=== PATIENT | male | born 1940 | race Caucasian/White ===

== ENCOUNTER 2016-02-23 21:47 | Inpatient (IN) | payer MEDICARE, OTHER ==
--- NOTE | 2016-02-23 22:21 | EDPRACDOC ---
- General Information Chief Complaint: Altered Mental Status Stated Complaint: AMS Time Seen by Provider: 02/23/16 22:12 Information Source: Police Home Medications: Home Medications Enalapril Maleate [Vasotec] 20 mg PO BID 10/29/15 [place]-3 Fatty Acids/Fish Oil [Fish Oil 1,000 mg Softgel] 1 cap PO DAILY Omeprazole [Prilosec] 20 mg PO DAILY 12/06/15 L. Acidophilus/Bulgaricus [Floranex Tablet] 1 tab PO DAILY 12/08/15 Carvedilol [Coreg] 6.25 mg PO BID #60 tablet 12/09/15 Oxycodone Immediate Release [Oxycodone Immediate Release (OxyIR)] 5 mg PO Q4H PRN #30 tablet 12/09/15 Glipizide [Glucotrol] 10 mg PO BID(ESTEFANI) 01/22/16 Insulin Aspart [Novolog] 0 units SQ .SSI BEFORE MEALS 01/22/16 Insulin NPL/Insulin Lispro [Humalog Mix 50-50 Kwikpen] 60 unit SQ .BREAKFAST & DINNER 01/22/16 Lactulose 30 ml PO .TID WITH MEALS 01/22/16 Magnesium Oxide [Mag-Ox] 400 mg PO QAM 01/22/16 Phosp Acid/Dextrose/Fructose [Emetrol Oral Solution] 15 ml PO DIR PRN Spironolactone [Aldactone] 25 mg PO DAILY 01/22/16 Allergies/Adverse Reactions: Allergies Allergy/AdvReac Type Severity Reaction Status Date / Time Penicillins Allergy Rash-Genera Verified 02/23/16 22:12 lized - History of Present Illness Onset: today HPI: Pt from [place] brought by EMS for AMS starting today. pt is responsive and answers questions. oriented to name. has no complaints. says he feels like his normal self. denies cp, sob, headache, abdo pain, chnage in urine, fever, cough , sore throat. Admits to some nausea and diarrhea recently. EMS states that he was found in bed with AMS. No mention of fall or injury. Med hx = liver failure , DM, CHF, hepatic encephalopathy, cirrhosis, UTI's. Duration: Unknown Symptoms Currently: Reports: Still Present (some confusion. States it is December when asked where he is. Oriented to his name) Altered Severity: Reports: Mild Recent Symptoms of: Reports: Nausea, Vomiting Relevant History: Reports: Diabetes Prehospital: Reports: Neurology Manager Associated signs and symptoms: Denies: N, O, Chest pain, Headache, Seizure, Slurred speech, Weakness - Treatment Prior to ED Arrival Reported Medications/Treatment [employer] EMS Treatment ALS ED Past Medical History - History Reviewed Yes Nurses notes reviewed and agree except as marked - Patient Medical History Neurological History: Reports: Metabolic encephalopathy (Associated with elevated ammonia), Toxic Encephalopathy Cardiac History: Reports: Coronary Artery Disease (Being followed by Cardiology in [place]), Hypertension, Hypercholesterolemia Respiratory History: Reports: Asthma GI/ History: Reports: Kidney Stones, Liver Failure (Nonalcoholic liver cirrhosis with portal hypertension), Gastroesophageal Reflux Musculoskeletal History: Reports: Arthritis Psychological History: Denies: Depression, Substance Use Disorder Systemic History: Reports: Anemia (Of chronic disease), Diabetes (Type 2 with neuropathy) Surgical History: Reports: Cholecystectomy, Other (Cataract) - Family Medical History Reports: Hypertension, DiabetesComment Only: Cancer (Mother Rectal CA) - Social Medical History Smoking Status: Former smoker Social History: Denies: Substance Use Disorder EDM Review of Systems - Review of Systems ROS Negative Except as Marked: Yes All systems reviewed and were negative except as marked Gastrointestinal: Nausea, Vomiting Neurological: Changes in Orientation - Physical Exam Constitutional: Somnolent Oriented to: Person Last recorded Vital Signs: Last Vital Signs Temp 98.5 F 02/23/16 21:50 Pulse 74 02/23/16 21:50 Resp 18 02/23/16 21:50 BP 166/83 02/23/16 21:50 Pulse Ox 95 02/23/16 21:50 Oxygen Pulse Oxygen Saturation 95 O2 Device Room Air Oxygen Flow Rate Fraction of Inspired Oxygen ( FIO2) - HEENT Head: Normal Eye Exam: negative: Conjunctival Injection, Scleral Icterus Oropharynx: negative: Drooling TMJ: Normal Nose: No Symptoms Reported Neck: Normal - Respiratory/Cardiovascular Respiratory: Normal - CTA Cardiovascular: Normal - GI Auscultation: Normal Palpation: Normal Tenderness: Non tender - Musculoskeletal Back: Normal Extremities: Normal - Integumentary Skin: Normal - Neurologic Mood Description: Calm Initial Evaluation Apperance: Neat Attitude: Cooperative Mood: Euthymic Affect: Congruent w/ mood Insight: Impaired - Results 02/24/16 05:05 02/24/16 05:05 - EKG EKG #1 EKG Time: 21:57 -: Yes EKG interpreted by me Rate: bpm: 72 [place]: LAD Rhythm: NSR Block: LBBB Comparison: 01/22/16 (no significant chnage) - Diagnostic Imaging Chest Image interpreted by: Radiologist EXAM: PORTABLE CHEST 1 VIEW COMPARISON: Chest radiograph performed 01/22/2016 FINDINGS: The lungs are well-aerated. Vascular congestion is noted. Increased interstitial markings may reflect mild interstitial edema or possibly pneumonia. There is no evidence of pleural effusion or pneumothorax. The cardiomediastinal silhouette is enlarged. No acute osseous abnormalities are seen. IMPRESSION: Vascular congestion and cardiomegaly. Increased interstitial markings may reflect mild interstitial edema or possibly pneumonia. Electronically Signed By: Keyshawn Hernandez M.D. On: 02/23/2016 23:51 - Departure Disposition: Admit IP To This Hospital Condition: Stable Final Diagnosis: Hepatic encephalopathy Pneumonia Qualifiers: Pneumonia type: due to unspecified organism Laterality: unspecified laterality Lung location: unspecified part of lung Qualified Code(s): J18.9 - Pneumonia, unspecified organism
[2016-02-23 22:44] LABS: RBC/URINE 0-2 (0-2); WBC/URINE 0-2 (0-2)
[2016-02-23 22:46] LABS: LEUKOCYTES/URINE NEG (NEGATIVE); NITRITE/URINE NEG (NEGATIVE); URINE OCCULT BLOOD NEG (NEG/TRACE)
[2016-02-23 23:10] LABS: AUTOMATED BASOPHIL 0.6 % (0-2); AUTOMATED EOSINOPHIL 1.2 % (0-5); AUTOMATED LYMPH 14.7 % (17-44); AUTOMATED MONOCYTE 10.6 % (3-10); AUTOMATED NEUTROPHIL 72.9 % (45-76)
[2016-02-23 23:21] LABS: BLOOD UREA NITROGEN 24 MG/DL (9-20); CALC CORRECTED 10.1 MG/DL (8.4-10.2); CALCIUM 9.6 MG/DL (8.4-10.2); CALCULATED OSMOLALITY 282 MOs/Kg (270-290); CHLORIDE 102 mEq/L (98-107); GLUCOSE 121 MG/DL (70-99); SODIUM LEVEL 144 mEq/L (137-146); TOTAL PROTEIN 7.4 G/DL (6.3-8.2)
[2016-02-23 23:23] LABS: PARTIAL THROMB. TIME 18.3 SEC (22-35); PT-INR 1.2
--- NOTE | 2016-02-23 23:54 | DIRPT ---
CLINICAL DATA: Acute onset of altered mental status. Initial encounter. EXAM: PORTABLE CHEST 1 VIEW COMPARISON: Chest radiograph performed 01/22/2016 FINDINGS: The lungs are well-aerated. Vascular congestion is noted. Increased interstitial markings may reflect mild interstitial edema or possibly pneumonia. There is no evidence of pleural effusion or pneumothorax. The cardiomediastinal silhouette is enlarged. No acute osseous abnormalities are seen. IMPRESSION: Vascular congestion and cardiomegaly. Increased interstitial markings may reflect mild interstitial edema or possibly pneumonia. Electronically Signed By: Keyshawn Hernandez M.D. On: 02/23/2016 23:51
[2016-02-24] MEDS ORDERED: LACTULOSE 20 GM/30 ML ORAL SOLN PO ONE (00:01)
[2016-02-24] MEDS ORDERED: Levofloxacin 750 mg/150 ml D5W 750 MG/150 ML RTU IV ONE (00:01)
[2016-02-24] MEDS ORDERED: NS 500 ML IV ONE (00:02)
[2016-02-24] MEDS ORDERED: DEXTROSE 25 GM/50 ML PFS IV PRN (00:47)
[2016-02-24] MEDS ORDERED: GLUCOSE (ORAL GEL) 15 GM TUBE PO PRN (00:47)
[2016-02-24] MEDS ORDERED: SIMETHICONE 80 MG TAB PO PRN (00:47)
[2016-02-24] MEDS ORDERED: GLUCAGON 1 MG VIAL SQ PRN (00:47)
[2016-02-24] MEDS ORDERED: Docusate Sodium 100 MG CAP PO PRN (00:47)
[2016-02-24] MEDS ORDERED: BENZONATATE 100 MG PERLES PO PRN (00:47)
[2016-02-24] MEDS ORDERED: GUAIFEN 100 MG-DEXTROMETH 10 MG PER 5 ML PO PRN (00:47)
[2016-02-24] MEDS ORDERED: BISACODYL 5 MG TAB PO PRN (00:47)
[2016-02-24] MEDS ORDERED: SENNA CONCENTRATE TAB PO PRN (00:47)
[2016-02-24] MEDS ORDERED: TEMAZEPAM 15 MG CAP PO PRN (00:47)
[2016-02-24] MEDS ORDERED: ACETAMINOPHEN 325 MG SUPP PR PRN (00:47)
[2016-02-24] MEDS ORDERED: ONDANSETRON HCL 4 MG/2 ML VIAL IV PRN (00:47)
[2016-02-24] MEDS ORDERED: PROMETHAZINE 25 MG/ML VIAL IV PRN (00:47)
[2016-02-24] MEDS ORDERED: IMIPENEM CILASTATIN 500 MG in D5W 100 ML IV SCH (00:50)
--- NOTE | 2016-02-24 00:56 | HISTPHYS ---
- Chief Complaint altered mental status - History of Present Illness PRIMARY CARE PROVIDER: Dr. Salazar The patient is a resident of [facility] HPI: The patient is a 75 yo man with advanced non-alcoholic cirrhosis who presents from [facility] due to altered mental status. He had been vomiting and having nausea earlier yesterday, then became obtunded overnight. The patient is not able to give much history because he is somnolent most of the time, so history is also obtained from the medical records and emergency department staff. Apparently the patient does not like to take his Lactulose and had refused to take it yesterday. 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 Onset: yesterday (within last 24 hours) Duration: constant Location: generalized. Character: obtunded and difficult to arouse. Confused when he is awake for brief moments. Alleviated by: Nothing. Exacerbated by: Nothing. Associated Symptoms: Per report he had vomiting and nausea. No report of abdominal pain, and patient denied abdominal pain or any other symptoms except fatigue during one of the brief moments that he was awake. He also denied shortness of breath and chest pain. No known fever or chills. Treatments: none at home except usual medications. Patient refused his lactulose at the facility. - Medical History Cardiac History: Reports: Coronary Artery Disease (Being followed by Cardiology in [place]), Hypertension, Hypercholesterolemia Respiratory History: Reports: Asthma GI/ History: Reports: Kidney Stones, Liver Failure (Nonalcoholic liver cirrhosis with portal hypertension), Gastroesophageal Reflux Musculoskeletal History: Reports: Arthritis Systemic History: Reports: Anemia (Of chronic disease), Diabetes (Type 2 with neuropathy) Neurological History: Reports: Metabolic encephalopathy (Associated with elevated ammonia), Toxic Encephalopathy Psychological History: Denies: Depression, Substance Use Disorder - Surgical History Reports: Cholecystectomy, Other (Cataract) - Medictions/Allergies Allergies Penicillins Allergy (Verified 02/23/16 22:12) Rash-Generalized Current Medication List: Reviewed Home Medications Enalapril Maleate [Vasotec] 20 mg PO BID 10/29/15 [place]-3 Fatty Acids/Fish Oil [Fish Oil 1,000 mg Softgel] 1 cap PO DAILY Omeprazole [Prilosec] 20 mg PO DAILY 12/06/15 L. Acidophilus/Bulgaricus [Floranex Tablet] 1 tab PO DAILY 10/30/16 Carvedilol [Coreg] 6.25 mg PO BID #60 tablet 12/09/15 Oxycodone Immediate Release [Oxycodone Immediate Release (OxyIR)] 5 mg PO Q4H PRN #30 tablet 12/09/15 Furosemide [Lasix] 40 mg PO .QAM & 1400 01/22/16 Glipizide [Glucotrol] 10 mg PO BID(ESTEFANI) 01/22/16 Insulin Aspart [Novolog] 0 units SQ .SSI BEFORE MEALS 01/22/16 Insulin NPL/Insulin Lispro [Humalog Mix 50-50 Kwikpen] 60 unit SQ .BREAKFAST & DINNER 01/22/16 Lactulose 30 ml PO .TID WITH MEALS 01/22/16 Magnesium Oxide [Mag-Ox] 400 mg PO QAM 01/22/16 Phosp Acid/Dextrose/Fructose [Emetrol Oral Solution] 15 ml PO DIR PRN Spironolactone [Aldactone] 25 mg PO DAILY 01/22/16 Linezolid [Zyvox] 600 mg PO BID #10 tablet 01/24/16 Rifaximin [Xifaxan] 550 mg PO BID #60 tablet 01/24/16 - Family History Reports: Hypertension, DiabetesComment Only: Cancer (Mother Rectal CA) - Social History Smoking Status: Former smoker Social History: Denies: Alcohol Use, Substance Use Disorder - Review of Systems Yes Review of systems cannot be obtained due to the patient's medical condition - Physical Exam Vital Signs: Initial Vitals Temperature 98.5 F 02/23/16 21:50 Pulse Rate 74 02/23/16 21:50 Respiratory Rate 18 02/23/16 21:50 Blood Pressure 166/83 02/23/16 21:50 Pulse Oxygen Saturation 95 02/23/16 21:50 Vital Signs - 24 hr 02/23/16 21:50 Temperature 98.5 F Pulse Rate 74 Respiratory 18 Rate Blood Pressure 166/83 Pulse Oxygen 95 Saturation Weight: 97 kg Height: 5 feet 10 inches BMI: 30.7 - Other Exam Other Exam Findings: GENERAL: Ill-appearing, well nourished, in acute distress. HEENT: Normocephalic, atraumatic; pupils equal and round. Nares patent, without discharge or bleeding. No oropharyngeal lesions or erythema. Mucous membranes are dry. NECK: is supple, no masses, trachea midline. RESPIRATORY: Clear to auscultation bilaterally. Chest wall movements are symmetric. No use of accessory muscles to breathe. No wheezing, rales, rhonchi. Decreased breath sounds in bases bilaterally. Decreased respiratory rate intermittently. CARDIOVASCULAR: Normal S1, S2. No murmurs, rubs, or gallops. PMI non-displaced. Carotids: no carotid bruits. No bradycardia or tachycardia. DP pulses 2+ bilaterally. GI: soft, protuberant, normal active bowel sounds. Hepatomegaly. No splenomegaly appreciated. Non-tender. INTEGUMENT: Clean, dry, and intact. No rashes. MUSCULOSKELETAL: Moving all extremities. No cyanosis. No clubbing. Edema: 1+ lower extremity edema bilaterally. NEUROLOGICAL: Cranial nerves 2-12 grossly intact, as best can be determined in this patient who is somnolent and not following all commands. Motor at least 3-4 /5 throughout, although patient not very cooperative with exam. Reflexes: 2+ bilaterally. Babinski: toes downgoing bilaterally. Unable to perform finger to nose, rapid alternating movements, or pronator drift exams; he would fall back asleep before the attempt. PSYCHIATRIC: Oriented to self. Somnolent to obtunded. Following some commands but generally too somnolent to follow commands. LYMPHATIC: No cervical lymphadenopathy. No supraclavicular lymphadenopathy. - Lab Results Laboratory Results - last 24 hr 02/23/16 02/23/16 02/23/16 00:00 22:25 22:50 WBC RBC Hgb Hct MCV MCH MCHC RDW Plt Count MPV Neut % (Auto) Lymph % (Auto) [place] % (Auto) Eos % (Auto) Baso % (Auto) Absolute Neuts (auto) Absolute Lymphs (auto) PT INR APTT Sodium 144 Potassium 4.0 Chloride 102 Carbon Dioxide 32 Anion Gap 14 BUN 24 H Creatinine 1.30 H Estimated GFR (MDRD) 54 L Glucose 121 H Calculated Osmolality 282 Lactic Acid Calcium 9.6 Corrected Calcium 10.1 Total Bilirubin 1.4 H AST 36 ALT 22 Alkaline Phosphatase 89 Ammonia Troponin I < 0.01 [id number] Pept 269 Total Protein 7.4 Albumin 3.5 Urine Color Yellow Urine Clarity Sl hzy Urine pH 5.0 Ur Specific [place] 1.010 Urine Protein Neg Urine Glucose (UA) Neg Urine Ketones Neg Urine Occult Blood Neg Urine Nitrite Neg Urine Bilirubin Neg Urine Urobilinogen 0.2 Ur Leukocyte Esterase Neg Urine RBC 0-2 Urine WBC 0-2 Ur Epithelial Cells Occ Urine Bacteria Few Hyaline Casts 5-10 H Urine Mucus Occ 02/23/16 02/23/16 02/23/16 22:50 22:50 22:50 WBC 8.4 RBC 3.36 L Hgb 10.3 L Hct 29.5 L MCV 88 MCH 30.6 MCHC 34.8 RDW 17.2 H Plt Count 236 MPV 8.0 Neut % (Auto) 72.9 Lymph % (Auto) 14.7 L [place] % (Auto) 10.6 H Eos % (Auto) 1.2 Baso % (Auto) 0.6 Absolute Neuts (auto) 6.05 Absolute Lymphs (auto) 1.18 PT INR APTT Sodium Potassium Chloride Carbon Dioxide Anion Gap BUN Creatinine Estimated GFR (MDRD) Glucose Calculated Osmolality Lactic Acid 2.0 Calcium Corrected Calcium Total Bilirubin AST ALT Alkaline Phosphatase Ammonia 139.0 H Troponin I [id number] Pept Total Protein Albumin Urine Color Urine Clarity Urine pH Ur Specific [place] Urine Protein Urine Glucose (UA) Urine Ketones Urine Occult Blood Urine Nitrite Urine Bilirubin Urine Urobilinogen Ur Leukocyte Esterase Urine RBC Urine WBC Ur Epithelial Cells Urine Bacteria Hyaline Casts Urine Mucus 02/23/16 22:50 WBC RBC Hgb Hct MCV MCH MCHC RDW Plt Count MPV Neut % (Auto) Lymph % (Auto) [place] % (Auto) Eos % (Auto) Baso % (Auto) Absolute Neuts (auto) Absolute Lymphs (auto) PT 12.0 H INR 1.2 APTT 18.3 L Sodium Potassium Chloride Carbon Dioxide Anion Gap BUN Creatinine Estimated GFR (MDRD) Glucose Calculated Osmolality Lactic Acid Calcium Corrected Calcium Total Bilirubin AST ALT Alkaline Phosphatase Ammonia Troponin I [id number] Pept Total Protein Albumin Urine Color Urine Clarity Urine pH Ur Specific [place] Urine Protein Urine Glucose (UA) Urine Ketones Urine Occult Blood Urine Nitrite Urine Bilirubin Urine Urobilinogen Ur Leukocyte Esterase Urine RBC Urine WBC Ur Epithelial Cells Urine Bacteria Hyaline Casts Urine Mucus - Diagnostic Findings Chest x-ray, viewed personally: EXAM: PORTABLE CHEST 1 VIEW COMPARISON: Chest radiograph performed 01/22/2016 FINDINGS: The lungs are well-aerated. Vascular congestion is noted. Increased interstitial markings may reflect mild interstitial edema or possibly pneumonia. There is no evidence of pleural effusion or pneumothorax. The cardiomediastinal silhouette is enlarged. No acute osseous abnormalities are seen. IMPRESSION: Vascular congestion and cardiomegaly. Increased interstitial markings may reflect mild interstitial edema or possibly pneumonia. - Assessment (1) Hepatic encephalopathy K72.90 - HEPATIC FAILURE, UNSPECIFIED WITHOUT COMA Acute Present on Admission: Yes Patient has once again refused to take his lactulose at the facility. This has resulted in hepatic encephalopathy. Admission ammonia level is quite high. Plan: Initially lactulose per rectum q.6 hours Continue home medications NPO until speech therapy evaluation when patient is more awake and alert. Neuro checks. (2) Aspiration pneumonia J69.0 - PNEUMONITIS DUE TO INHALATION OF FOOD AND VOMIT Acute Present on Admission: Yes Chest x-ray suggestive of possible pneumonia. Given that patient has had altered mental status along with vomiting, aspiration pneumonia is suspected. Plan: Cultures ordered. IV Levaquin and IV imipenem have been ordered. (3) Cirrhosis, non-alcoholic K74.60 - UNSPECIFIED CIRRHOSIS OF LIVER Chronic UPDATE: Continue medications. Monitor for bleeding. (4) Diabetes mellitus with neuropathy E11.40 - TYPE 2 DIABETES MELLITUS WITH DIABETIC NEUROPATHY, UNSP Chronic Qualifiers: Diabetes mellitus type: type 2 Diabetes mellitus medical terminologist insulin use: with medical terminologist use Qualified Code(s): E11.40 - Type 2 diabetes mellitus with diabetic neuropathy, unspecified; Z79.4 - prison (current) use of insulin Plan: Hold oral diabetes medications. Check fingerstick blood sugars q ac and hs. Sliding scale insulin. - Plan In summary, this patient is acutely and critically ill. The patient requires treatment of vital organ failure and measures to prevent further life- threatening deterioration of condition. I have spent 60 min in the critical care of this patient. Case Care Discussed with: Patient, Nursing Staff Total Time: 60 min Critical Care: Yes Code: 291
[2016-02-24] MEDS ORDERED: ENOXAPARIN 40 MG/0.4 ML PFS SQ SCH (01:00)
[2016-02-24] MEDS ORDERED: LACTULOSE 10 GM/15 ML ORAL SOLN 480 ML PR ONE (01:06)
[2016-02-24 02:43] VITALS: BMI 30.9
[2016-02-24] MEDS: IMIPENEM CILASTATIN 500 MG in D5W 100 ML IV SCH ×3 (02:43→17:09)
[2016-02-24] MEDS: ENOXAPARIN 60 MG/0.6 ML PFS SQ SCH ×2 (02:43→20:58)
[2016-02-24] MEDS: PANTOPRAZOLE 40 MG VIAL IV SCH ×2 (02:43→15:20)
[2016-02-24] MEDS ORDERED: Vaccine Screening Complete SCH (05:00)
[2016-02-24 05:17] LABS: MPV 7.8 fL (7.4-10.4)
[2016-02-24 05:22] LABS: BLOOD UREA NITROGEN 24 MG/DL (9-20); CALC CORRECTED 9.9 MG/DL (8.4-10.2); CALCIUM 9.1 MG/DL (8.4-10.2); CALCULATED OSMOLALITY 282 MOs/Kg (270-290); CHLORIDE 103 mEq/L (98-107); GLUCOSE 147 MG/DL (70-99); SODIUM LEVEL 143 mEq/L (137-146); TOTAL PROTEIN 6.8 G/DL (6.3-8.2)
[2016-02-24] MEDS: REGULAR INSULIN 100 UNITS/ML - 3 ML VIAL SQ SCH ×4 (06:08→21:06)
[2016-02-24] MEDS ORDERED: LACTULOSE 10 GM/15 ML ORAL SOLN 480 ML PR SCH (08:00)
[2016-02-24] MEDS ORDERED: OXYCODONE HCL 5 MG TABLET PO PRN (08:05)
[2016-02-24] MEDS: LACTULOSE 20 GM/30 ML ORAL SOLN PO SCH ×3 (10:14→17:09)
[2016-02-24] MEDS: MAGNESIUM OXIDE 400 MG TAB PO SCH (10:15)
[2016-02-24] MEDS: LACTOBACILLUS ACIDOPHILUS TAB PO SCH (10:15)
[2016-02-24] MEDS: CARVEDILOL 6.25 MG TAB PO SCH ×2 (10:15→20:57)
[2016-02-24] MEDS: SPIRONOLACTONE 25 MG TAB PO SCH (10:15)
[2016-02-24] MEDS: RIFAXIMIN 550 MG TAB PO SCH ×2 (10:16→20:58)
[2016-02-24] MEDS: ENALAPRIL MALEATE 20 MG TAB PO SCH ×2 (10:16→20:57)
[2016-02-24] MEDS ORDERED: OMEGA-3-ACID ETHYL ESTERS 1000 MG CAP PO SCH (12:00)
[2016-02-24] MEDS: ACETAMINOPHEN 325 MG/TAB TABLET PO PRN (20:56)
[2016-02-25] MEDS ORDERED: Levofloxacin 750 mg/150 ml D5W 750 MG/150 ML RTU IV SCH
[2016-02-25] MEDS: IMIPENEM CILASTATIN 500 MG in D5W 100 ML IV SCH ×2 (01:05→08:48)
[2016-02-25] MEDS: PANTOPRAZOLE 40 MG VIAL IV SCH (01:05)
[2016-02-25 03:40] VITALS: TEMP 97.8
[2016-02-25 05:00] LABS: BLOOD UREA NITROGEN 21 MG/DL (9-20); CALCIUM 8.7 MG/DL (8.4-10.2); CALCULATED OSMOLALITY 271 MOs/Kg (270-290); CHLORIDE 101 mEq/L (98-107); GLUCOSE 100 MG/DL (70-99); SODIUM LEVEL 139 mEq/L (137-146)
[2016-02-25] MEDS: REGULAR INSULIN 100 UNITS/ML - 3 ML VIAL SQ SCH (06:27)
[2016-02-25] MEDS: ACETAMINOPHEN 325 MG/TAB TABLET PO PRN (07:23)
[2016-02-25 08:11] VITALS: BP 135/55
[2016-02-25] MEDS: LACTULOSE 20 GM/30 ML ORAL SOLN PO SCH (08:46)
[2016-02-25] MEDS: SPIRONOLACTONE 25 MG TAB PO SCH (08:46)
[2016-02-25] MEDS: LACTOBACILLUS ACIDOPHILUS TAB PO SCH (08:47)
[2016-02-25] MEDS: CARVEDILOL 6.25 MG TAB PO SCH (08:47)
[2016-02-25] MEDS: MAGNESIUM OXIDE 400 MG TAB PO SCH (08:47)
[2016-02-25] MEDS: ENALAPRIL MALEATE 20 MG TAB PO SCH (08:48)
[2016-02-25] MEDS: RIFAXIMIN 550 MG TAB PO SCH (08:48)
--- NOTE | 2016-02-25 09:17 | PCM.DCS92 ---
- Final/Secondary Discharge Diagnosis (1) Aspiration pneumonia Ruled-out J69.0 - PNEUMONITIS DUE TO INHALATION OF FOOD AND VOMIT Present on Admission: Yes Comment: Chest x-ray suggestive of possible pneumonia. There was concern for aspiration pneumonia given the patient has altered mental status, along with vomiting. He was started on empiric IV antibiotics Levaquin and imipenem, however now he is awake and alert, without any cough, shortness of breath or hypoxia. As such, he will be discharged home today without any antibiotics for pneumonia. I do not think he has an aspiration pneumonia. (2) Hepatic encephalopathy Acute K72.90 - HEPATIC FAILURE, UNSPECIFIED WITHOUT COMA Present on Admission: Yes Comment: Patient has once again refused to take his lactulose at the facility. This has resulted in hepatic encephalopathy. Admission ammonia level is quite high, after scheduled lactulose he has improved dramatically. He is now eating , ready for discharge home from the hospital. No need to recheck ammonia today. (3) Anemia of chronic disease Chronic D63.8 - ANEMIA IN OTHER CHRONIC DISEASES CLASSIFIED ELSEWHERE Comment: Continue proton pump inhibitor daily and iron supplement. 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 (5) Dyslipidemia Chronic E78.5 - HYPERLIPIDEMIA, UNSPECIFIED Comment: Continue Lipitor (6) GERD (gastroesophageal reflux disease) Chronic K21.9 - GASTRO-ESOPHAGEAL REFLUX DISEASE WITHOUT ESOPHAGITIS without esophagitis K21.9 - Gastro-esophageal reflux disease without esophagitis Comment: Continue PPI (7) Hypertension Chronic I10 - ESSENTIAL (PRIMARY) HYPERTENSION essential hypertension I10 - Essential (primary) hypertension Comment: Continue meds , BP under control Discharge Disposition: Detention Facility (He is a resident of [facility]. ) Discharge Condition: Stable Fuctional Discharge Status: Independent Physician Follow up/Referrals: [place] PA [Primary Care Provider] - One Week O2 Device: Room Air Diet at Discharge: Regular (Low protein.) Activity: As Tolerated, No Heavy Lifting (nothing over 30 lbs), No Driving ( while using pain medications) Call Office For: Worsening Symptoms, Wound is Draining Pus, Fever over 101 F - DC Summary Notes HPI/Notes: This is a pleasant 75-year-old male resident of [facility] with history of non alcoholic cirrhosis, who reportedly is not compliant with his lactulose. He reportedly refuses take the medication intermittently, in fact refused to take it the day prior to admission to the hospital. He is admitted to the hospital with metabolic encephalopathy, treated with scheduled rectal lactulose, he is symptomatically much improved this morning and is ready for discharge back to the [place] [facility]. He was instructed to resume his regular medications, not to miss doses of his lactulose. Note that the patient was initially treated for aspiration pneumonia, however despite chest x-ray abnormalities, the patient has no hypoxia, cough or shortness of breath. I do not think that he is suffering from pneumonia at this time. As such, he will be discharged back to [facility] today without any antibiotics. Please see the hospital problems and discharge problems above for details of the hospital course including diagnostics and treatment. The plan of care including medications, prognosis, follow-up including alarm symptoms for which medical care should be sought were reviewed with the patient and any available family members/caretakers. The patient is agreeable to discharge today, and all questions were answered by me to their satisfaction. Note the patient was admitted to the hospital under inpatient status, he made a more rapid than expected recovery and is ready for discharge today. Hospital Course Note:: Discharge summary on patient named JULIÁN STOUT admitted to [facility] on 02/24/16 by Garry Chan MD. Date of discharge is []. Total Time: 42 - Physical Exam Vital Signs: Last Vital Signs Temp 97.8 F 02/25/16 08:10 Pulse 66 02/25/16 08:10 Resp 18 02/25/16 08:10 BP 135/55 L 02/25/16 08:10 Pulse Ox 94 02/25/16 08:10 Oxygen Pulse Oxygen Saturation 94 O2 Device Room Air Oxygen Flow Rate Fraction of Inspired Oxygen ( FIO2) Constitutional: No apparent distress, Alert Oriented to: Time, Person, Place Exam: Sitting up in bed, resting comfortably. Eating breakfast. - HEENT Head: Normal Eye: negative: Conjunctival Injection, Scleral Icterus Oropharynx: negative: Drooling TMJ: Normal Nose: No Symptoms Reported - Respiratory/Cardiovascular Respiratory: Normal - CTA Cardiovascular: Normal - GI Auscultation: Normal Palpation: Normal Tenderness: Non tender - Musculoskeletal Back: Normal Extremities: Normal - Integumentary Skin: Normal - Neurologic Mood Description: Calm
[2016-02-25 11:07] VITALS: PULSE 72
== END 2016-02-25 14:13 | DRG 443 ==
LOC: ED 21:47 → PCU 02-24 00:40
PROVIDERS: ADMIT Internal Medicine; ATTEND Internal Medicine
DX: K72.90 Hepatic failure, unspecified without coma (principal); E11.40 Type 2 diabetes mellitus with diabetic neuropathy, unspecified; D63.8 Anemia in other chronic diseases classified elsewhere; K74.60 Unspecified cirrhosis of liver; Z79.899 Other long term (current) drug therapy; Z87.891 Personal history of nicotine dependence; Z91.14 Patient's other noncompliance with medication regimen; Z79.4 Long term (current) use of insulin; E78.5 Hyperlipidemia, unspecified; I10 Essential (primary) hypertension; K21.9 Gastro-esophageal reflux disease without esophagitis; I25.10 Atherosclerotic heart disease of native coronary artery without angina pectoris; E78.00 Pure hypercholesterolemia, unspecified
CPT/HCPCS: 36415; 71010; 80048; 80053; 81001; 82140; 82962; 83605; 83735; 83880; 84484; 85025; 85027; 85610; 85730; 87040; 87086; 93005; 96365; 96372; 98960; 99284; J0743; J1650; J1956; J3490; J7060; S0164